=== PATIENT | female | born 1945 | race Caucasian/White ===

== ENCOUNTER 2017-06-10 12:04 | Day surgery (SDC) | payer MEDICARE, OTHER ==
[~2017-06-10] VITALS: Ht 160 cm; Wt 89.0 kg
[~2017-06-10 12:04] MED LIST: AMLO10; Cardizem CD 12120 MG PO; HYDCHL25; LISHYD2012; LISHYD2012 PO; LOPE2C; LOSARTAN POTAS100 MG; METCAR500 PO; VARE1 PO
== END 2017-06-10 13:59 | disposition home or self-care (01) ==
LOC: ORSCSDS 12:04
PROVIDERS: Internal Medicine Gastroenterology
PROC: 0DBH8ZX Excision of Cecum, Via Natural or Artificial Opening Endoscopic, Diagnostic (ICD-10-PCS; principal; 2017-06-10 12:30)
PROC: 0DBL8ZX Excision of Transverse Colon, Via Natural or Artificial Opening Endoscopic, Diagnostic (ICD-10-PCS; principal; 2017-06-10 12:30)
PROC: 0DBK8ZX Excision of Ascending Colon, Via Natural or Artificial Opening Endoscopic, Diagnostic (ICD-10-PCS; principal; 2017-06-10 12:30)
DX: Z12.11 Encounter for screening for malignant neoplasm of colon (principal); D12.2 Benign neoplasm of ascending colon; D12.3 Benign neoplasm of transverse colon; K51.40 Inflammatory polyps of colon without complications; K64.8 Other hemorrhoids; K57.30 Diverticulosis of large intestine without perforation or abscess without bleeding; Z86.010 Personal history of colon polyps; Z80.0 Family history of malignant neoplasm of digestive organs; I10 Essential (primary) hypertension; Z86.73 Personal history of transient ischemic attack (TIA), and cerebral infarction without residual deficits; F17.210 Nicotine dependence, cigarettes, uncomplicated; Z79.899 Other long term (current) drug therapy
CPT/HCPCS: 88305; J7120

== ENCOUNTER → 2018-06-09 | Outpatient (CLI) | payer MEDICARE, OTHER | END | disposition home or self-care (01) | LOC: LAB SHORT 15:46 → LAB EV 15:46 | DX: L72.3 Sebaceous cyst (principal); L02.211 Cutaneous abscess of abdominal wall | CPT/HCPCS: 87070; 87075; 87077; 87186; 87205 ==

== ENCOUNTER → 2020-08-01 | Outpatient (CLI) | payer MEDICARE, OTHER ==
[2020-08-01 19:37] LABS: Appearance, Urine Cloudy (Clear); Bilirubin, Urine Neg (Neg); Blood, Urine Neg (Neg); Color, Urine Yellow (P-Yellow); Glucose Qualitative, Urine Neg (Neg); Ketones, Urine Neg (Neg); Leukocyte Esterase, Urine 3+ (Neg); Nitrite, Urine Neg (Neg); Protein, Urine 1+ (Neg); Specific Gravity, Urine 1.015 (1.003-1.022); Urobilinogen, Urine NORM (Normal)
[2020-08-01 20:01] LABS: Bacteria Many /hpf; Red Blood Cells, Urine 0-2 /hpf (0-2); Squamous Epithelial Cells Many /hpf (Few)
[2020-08-01 20:02] LABS: Calcium Oxalate Crystals Mod /hpf
== END ==
LOC: LAB SHORT 14:15
PROVIDERS: Internal Medicine
DX: N39.0 Urinary tract infection, site not specified (principal)
CPT/HCPCS: 81001; 87086

== ENCOUNTER → 2021-01-29 | Outpatient (CLI) | payer MEDICARE, OTHER ==
[2021-01-30 14:11] LABS: HPV 16 Negative (Negative); HPV 18 Negative (Negative); HPV OTHER HR TYPES Negative (Negative)
== END | disposition home or self-care (01) ==
LOC: LAB 11:02 → LAB SHORT 11:02
PROVIDERS: Obstetrics & Gynecology
DX: Z01.419 Encounter for gynecological examination (general) (routine) without abnormal findings (principal)
CPT/HCPCS: 87624; G0123

== ENCOUNTER → 2021-02-13 | Outpatient (CLI) | payer MEDICARE, OTHER ==
[2021-02-13 14:52] LABS: Appearance, Urine Hazy (Clear); Bilirubin, Urine Neg (Neg); Blood, Urine Neg (Neg); Color, Urine Yellow (P-Yellow); Glucose Qualitative, Urine Neg (Neg); Ketones, Urine Neg (Neg); Leukocyte Esterase, Urine 3+ (Neg); Nitrite, Urine Neg (Neg); Protein, Urine 1+ (Neg); Specific Gravity, Urine 1.015 (1.003-1.022); Urobilinogen, Urine NORM (Normal)
[2021-02-13 15:18] LABS: Bacteria Many /hpf; Red Blood Cells, Urine 0-2 /hpf (0-2); Squamous Epithelial Cells Mod /hpf (Few); Transitional Epithelial Cells Few /hpf (0-Rare); White Blood Cells, Urine 25-50 /hpf (0-5)
== END | disposition home or self-care (01) ==
LOC: LAB 11:00 → LAB SHORT 11:00
PROVIDERS: Internal Medicine
DX: N39.0 Urinary tract infection, site not specified (principal)
CPT/HCPCS: 81001; 87086

== ENCOUNTER → 2021-04-08 | Outpatient (CLI) | payer MEDICARE, OTHER | END | disposition home or self-care (01) | LOC: LAB SHORT 19:30 → LAB 19:30 | DX: N39.0 Urinary tract infection, site not specified (principal) | CPT/HCPCS: 87086 ==

== ENCOUNTER 2021-04-15 08:38 | Day surgery (SDC) | payer MEDICARE, OTHER ==
[~2021-04-15] VITALS: Ht 160 cm; Wt 95.6 kg
[~2021-04-15 08:38] MED LIST changes: +BUPROPION XL150 M1 PO; +Calcium Carbon500 MG PO; +MELATONIN5 M1 PO; +METO25ER PO; +VIT1CAPS12
[2021-04-15 11:12] LABS: BASOPHILS ABSOLUTE AUTO 0.05 K/mm3 (0.00-0.23); BASOPHILS PERCENT AUTO 1 % (0-2); EOSINOPHILS ABSOLUTE AUTO 0.22 K/mm3 (0.00-0.68); EOSINOPHILS PERCENT AUTO 3 % (0-6); Hematocrit 52.3 % (33.0-51.0); Hemoglobin 17.1 g/dL (11.5-16.0); IMMATURE GRAN PERCENT AUTO 1 % (0-1); LYMPHOCYTES ABSOLUTE AUTO 1.58 K/mm3 (0.84-5.20); LYMPHOCYTES PERCENT AUTO 19 % (21-46); MONOCYTES ABSOLUTE AUTO 1.31 K/mm3 (0.16-1.47); MONOCYTES PERCENT AUTO 16 % (4-13); Mean Corpuscular HGB 29.1 pg (26.0-34.0); Mean Corpuscular HGB Conc 32.7 g/dL (31.5-36.5); Mean Corpuscular Volume 89 fL (80-100); NEUTROPHILS ABSOLUTE AUTO 4.94 K/mm3 (1.96-9.15); NEUTROPHILS PERCENT AUTO 60 % (41-73); Platelet Count 131 K/mm3 (150-400); RDW Coefficient Variation 13.8 % (11.7-14.2); RDW Standard Deviation 45.1 fL (35.1-46.3); Red Blood Cell Count 5.88 M/mm3 (3.80-5.20)
[2021-04-15 11:17] LABS: Bun/Creatinine Ratio 21.2 (12.0-20.0); Calcium, Blood 9.6 mg/dL (8.5-10.1); Creatinine, Blood 1.04 mg/dL (0.40-1.00); Potassium, Blood 3.5 mmol/L (3.5-5.5)
--- NOTE | 2021-04-15 12:30 | NUR ---
Discharge instructions reviewed with patient. Patient verbalizes understanding. Copy given to patient to take home.
--- NOTE | 2021-04-15 12:33 | NUR ---
PT MAINTAINGIN SATS AT 94-95 ON ROOM AIR
--- NOTE | 2021-04-15 12:55 | NUR ---
Discharged via wheelchair to private car for ride home.
== END 2021-04-15 12:57 | disposition home or self-care (01) ==
LOC: ORSCMMR 08:38 → ORD 09:30 → ORSCMMR 09:30
PROVIDERS: Obstetrics & Gynecology
PROC: 0UDB8ZX Extraction of Endometrium, Via Natural or Artificial Opening Endoscopic, Diagnostic (ICD-10-PCS; principal; 2021-04-15 10:30)
DX: N95.0 Postmenopausal bleeding (principal); N84.0 Polyp of corpus uteri; I10 Essential (primary) hypertension; K21.9 Gastro-esophageal reflux disease without esophagitis; E66.9 Obesity, unspecified; Z68.37 Body mass index [BMI] 37.0-37.9, adult; Z79.899 Other long term (current) drug therapy
CPT/HCPCS: 80048; 85025; 88305; 93005; 93010; J1100; J1885; J2405; J2704; J3010; J7120

== ENCOUNTER → 2021-09-05 | Outpatient (CLI) | payer MEDICARE, OTHER ==
[2021-09-05 15:30] LABS: Appearance, Urine Hazy (Clear); Bilirubin, Urine Neg (Neg); Blood, Urine 1+ (Neg); Glucose Qualitative, Urine Neg (Neg); Ketones, Urine Neg (Neg); Leukocyte Esterase, Urine 2+ (Neg); Nitrite, Urine Pos (Neg); Protein, Urine 1+ (Neg); Specific Gravity, Urine 1.015 (1.003-1.022); Urobilinogen, Urine NORM (Normal)
[2021-09-05 16:47] LABS: Color, Urine Pale Yellow (P-Yellow)
[2021-09-05 16:48] LABS: Bacteria Many /hpf; Red Blood Cells, Urine 0-2 /hpf (0-2); Squamous Epithelial Cells Rare /hpf (Few); White Blood Cells, Urine 50-100 /hpf (0-5)
== END | disposition home or self-care (01) ==
LOC: LAB 13:44 → LAB SHORT 13:44
PROVIDERS: Internal Medicine
DX: N39.0 Urinary tract infection, site not specified (principal)
CPT/HCPCS: 81001; 87077; 87086; 87186

== ENCOUNTER → 2023-01-26 | Outpatient (CLI) | payer MEDICARE, OTHER ==
[2023-01-26 13:15] LABS: Appearance, Urine Hazy (Clear); Bilirubin, Urine Neg (Neg); Blood, Urine Neg (Neg); Color, Urine Yellow (P-Yellow); Glucose Qualitative, Urine Neg (Neg); Ketones, Urine Neg (Neg); Leukocyte Esterase, Urine 3+ (Neg); Nitrite, Urine Pos (Neg); Protein, Urine 1+ (Neg); Urobilinogen, Urine NORM (Normal)
[2023-01-26 13:38] LABS: Squamous Epithelial Cells Mod /hpf (Few)
[2023-01-26 13:39] LABS: Bacteria Many /hpf; Calcium Oxalate Crystals Mod /hpf
[2023-01-26 13:40] LABS: Amorphous Light (0-Heavy)
== END | disposition home or self-care (01) ==
LOC: LAB SHORT 09:00 → LAB 09:00
PROVIDERS: Internal Medicine
DX: N39.0 Urinary tract infection, site not specified (principal)
CPT/HCPCS: 81001; 87077; 87086; 87186

== ENCOUNTER 2023-02-13 13:12 | Emergency (ER) | payer MEDICARE, OTHER ==
[~2023-02-13] VITALS: Ht 160 cm; Wt 95.2 kg
[2023-02-13 14:47] VITALS: BP 140/78
== END 2023-02-13 14:48 | disposition home or self-care (01) ==
LOC: ER 13:12
DX: Z04.3 Encounter for examination and observation following other accident (principal); I10 Essential (primary) hypertension; F17.210 Nicotine dependence, cigarettes, uncomplicated; Z79.899 Other long term (current) drug therapy; W01.198A Fall on same level from slipping, tripping and stumbling with subsequent striking against other object, initial encounter
CPT/HCPCS: 99283

== ENCOUNTER → 2023-02-21 | Outpatient (CLI) | payer MEDICARE, OTHER ==
[2023-02-22 14:35] LABS: Source, Urine Clean Catch
[2023-02-22 14:39] LABS: Appearance, Urine Hazy (Clear); Bilirubin, Urine Neg (Neg); Blood, Urine Neg (Neg); Color, Urine Yellow (P-Yellow); Glucose Qualitative, Urine Neg (Neg); Ketones, Urine Neg (Neg); Leukocyte Esterase, Urine 3+ (Neg); Nitrite, Urine Neg (Neg); Protein, Urine 1+ (Neg); Specific Gravity, Urine 1.025 (1.003-1.022); Urobilinogen, Urine NORM (Normal)
[2023-02-22 14:46] LABS: Bacteria Many /hpf; Calcium Oxalate Crystals Mod /hpf; Hyaline Casts 0-2 /lpf (0-2); Red Blood Cells, Urine 0-2 /hpf (0-2); Squamous Epithelial Cells Many /hpf (Few)
== END ==
LOC: LAB 20:00 → LAB SHORT 20:00
PROVIDERS: Internal Medicine
DX: N39.0 Urinary tract infection, site not specified (principal)
CPT/HCPCS: 81001; 87086

== ENCOUNTER 2023-02-27 00:10 | Inpatient (IN) | payer MEDICARE, OTHER ==
[~2023-02-27] VITALS: Ht 160 cm; Wt 100.2 kg
[2023-02-27] VITALS (15 sets, daily range): BP systolic 67–120; BP diastolic 28–83
[~2023-02-27 00:10] MED LIST changes: +PRESERVISION L1 EAC2 PO; -VIT1CAPS12
[2023-02-27 00:30] LABS: Hematocrit 46.8 % (33.0-51.0); Hemoglobin 14.2 g/dL (11.5-16.0); Mean Corpuscular HGB 28.6 pg (26.0-34.0); Mean Corpuscular HGB Conc 30.3 g/dL (31.5-36.5); Mean Corpuscular Volume 94 fL (80-100); Platelet Count 103 K/mm3 (150-400); RDW Coefficient Variation 14.2 % (11.7-14.2); RDW Standard Deviation 48.9 fL (35.1-46.3); Red Blood Cell Count 4.96 M/mm3 (3.80-5.20); White Blood Cell Count 7.35 K/mm3 (4.00-11.30)
[2023-02-27 00:54] LABS: Albumin, Blood 3.1 g/dL (3.4-5.0); Albumin/Globulin Ratio 0.6 (0.8-1.8); Bilirubin, Total 0.5 mg/dL (0.1-1.0); Bun/Creatinine Ratio 23.4 (12.0-20.0); Creatinine, Blood 0.99 mg/dL (0.40-1.00); Globulin, Blood 4.9 g/dL (2.2-4.0); Potassium, Blood 3.5 mmol/L (3.5-5.5)
[2023-02-27 00:55] LABS: BAND PERCENT MAN 1 % (0-8); BASOPHILS PERCENT MAN 0 % (0-2); EOSINOPHILS PERCENT MAN 0 % (0-6); LYMPHOCYTES ABSOLUTE MAN 1.02 K/mm3 (0.84-5.20); LYMPHOCYTES PERCENT MAN 14 % (21-46); MONOCYTES ABSOLUTE MAN 0.58 K/mm3 (0.16-1.47); MONOCYTES PERCENT MAN 8 % (4-13); NEUTROPHILS ABSOLUTE MAN 5.73 K/mm3 (1.96-9.15); SEG NEUTROPHILS PERCENT MAN 77 % (41-73); TOTAL CELLS COUNTED 100
[2023-02-27 01:58] LABS: Magnesium, Blood 2.1 mg/dL (1.6-2.4)
[2023-02-27 02:29] LABS: Thyroid Stimulating Hormone 2.53 uIU/mL (0.360-4.800)
[2023-02-27 04:37] LABS: BASOPHILS ABSOLUTE AUTO 0.01 K/mm3 (0.00-0.23); BASOPHILS PERCENT AUTO 0 % (0-2); EOSINOPHILS ABSOLUTE AUTO 0.06 K/mm3 (0.00-0.68); EOSINOPHILS PERCENT AUTO 1 % (0-6); Hemoglobin 13.5 g/dL (11.5-16.0); IMMATURE GRAN ABSOLUTE AUTO 0.07 K/mm3 (0.00-0.10); IMMATURE GRAN PERCENT AUTO 1 % (0-1); LYMPHOCYTES ABSOLUTE AUTO 0.71 K/mm3 (0.84-5.20); LYMPHOCYTES PERCENT AUTO 9 % (21-46); MONOCYTES PERCENT AUTO 7 % (4-13); Mean Corpuscular HGB 29.1 pg (26.0-34.0); Mean Corpuscular HGB Conc 30.7 g/dL (31.5-36.5); Mean Corpuscular Volume 95 fL (80-100); NEUTROPHILS ABSOLUTE AUTO 6.72 K/mm3 (1.96-9.15); NEUTROPHILS PERCENT AUTO 82 % (41-73); Platelet Count 101 K/mm3 (150-400); RDW Coefficient Variation 14.1 % (11.7-14.2); RDW Standard Deviation 48.9 fL (35.1-46.3); Red Blood Cell Count 4.64 M/mm3 (3.80-5.20); White Blood Cell Count 8.17 K/mm3 (4.00-11.30)
[2023-02-27 04:55] LABS: Bun/Creatinine Ratio 23.6 (12.0-20.0); Calcium, Blood 8.7 mg/dL (8.5-10.1); Creatinine, Blood 0.93 mg/dL (0.40-1.00); Potassium, Blood 5.1 mmol/L (3.5-5.5)
[2023-02-27 15:57] LABS: Anti-Xa UFH, PHA Monitoring <0.10 IU/mL; International Normalized Ratio 1.03; Prothrombin Time Results 10.8 Sec (9.7-11.5)
--- NOTE | 2023-02-27 16:43 | NUR ---
KIMBER CALLED DR WOOD TO NOTIFY OF PT MAINTAINING NSR RATE 70'S. IMPROVED BLOOD PRESSURE, STRONGER PLETH, AND RESOLUTION OF DUSKY CHEST. HE STOPPED THE NPO. AGREED TO THE HEPARIN GTT. CONTINUE POC.
--- NOTE | 2023-02-27 18:12 | NUR ---
NOTE PT RESTING QUIETLY EYES CLOSED. RESP EVEN AND UNLABORED. PT HAS MAINTAINED SR WITH FIRST DEGREE. NO PAUSES OR AFIB. HEPARIN GTT STARTED PER ORDER. IVF INFUSING 100 ML/HR. DENIED PAIN, SOB OR DIZZINESS. PT HAS NOT VOIDED SINCE ADMIT FROM ER. DR WOOD AWARE. CONTINUE POC.
[2023-02-28 04:04] VITALS: BP 116/75
--- NOTE | 2023-02-28 05:41 | NUR ---
PT WENT BACK INTO AFIB WITH PAUSES THIS MORNING. SHE HAD SOME MORE RUNS OF PAUSES. PATIENT ASYMTOPMATIC. PATIENT HAS ROGER AND OXYGEN DROPS OVERNIGHT. PT UP WITH 1 TO BS. LIVES AT [facility]
[2023-02-28 07:17] LABS: Hemoglobin 13.9 g/dL (11.5-16.0); Platelet Count 93 K/mm3 (150-400)
[2023-02-28 07:47] VITALS: BP 113/51
[2023-02-28 07:51] LABS: Mean Platelet Volume 14.3 fL (9.1-12.4)
[2023-02-28 11:50] VITALS: BP 105/67
[2023-02-28 16:05] VITALS: BP 104/67
--- NOTE | 2023-02-28 17:45 | NUR ---
SUMMARY- PT A/O X4. GEN WEAKNESS. UP TO CHAIR FOR BREAKFAST AND LUNCH. TOLERATING PO FOOD AND FLUIDS. TELE THIS AM 0810 AFIB RATE 39 BRIEFLY, CONVERTED FOR A SHORT TIME TO SR IN THE 80'S. BACK TO A-FIB 80-100'S, FREQ PAUSES RANGING FROM 3.5-6 SECONDS IN LENGTH APPROX HOURLY. AFIB MOST OF THIS SHIFT EXCEPT BRIEF SR THIS AM. PT DENIES EVER FEELING DIZZI OR SOB DURING EPISODES. LAST DOSE ACCORDING TO PT WAS PM 02/26 APPROX 1999 JUST BEFORE SHE WAS BROUGHT INTO ED. DR SIGALA CONSULTED AND PT HAS CONCENTED FOR PACEMAKER SHOUD PAUSES CONTINUE. PLAN FOR PT TO BE NPO AFTER MN FOR PACEMAKER PLACEMENT LIKELY THURSDAY, BUT WILL PERFORM THURSDAY IF MORE URGENT. PT MAINTAINS STABLE BP SBP 110'S/60'S. WILL REPORT TO JOHNY COLLAZO
[2023-02-28 20:30] VITALS: BP 105/64
[2023-03-01] VITALS (8 sets, daily range): BP systolic 102–133; BP diastolic 62–88
[2023-03-01 02:32] LABS: Hematocrit 44.7 % (33.0-51.0); Hemoglobin 13.4 g/dL (11.5-16.0); Platelet Count 86 K/mm3 (150-400)
[2023-03-01 02:52] LABS: Mean Platelet Volume 13.4 fL (9.1-12.4)
--- NOTE | 2023-03-01 05:51 | NUR ---
SHIFT SUMMARY ADMIT FOR SINUS PAUSES, NON-SYMPTOMATIC. NEW DX AFIB W/ 3-4SEC PAUSES. PT A&OX3, PLEASANT AND LIKES TO VISIT. O2 INCREASED TO 4L DURING SLEEP FOR LOW BIOX. PT NPO @MN, IN THE EVENT OF SURGERY. POSS PLANS FOR PACER PLACEMENT THURSDAY. HEPARIN DRIP CONTINUED AT 13U/KG/HR TO L AC. EPI AND ATROPINE AT BEDSIDE. PT USES BSC W/ 1 ASSIST. UP TO RECLINER THIS A.M. CALL LIGHT W/IN REACH. WILL REPORT TO ONCOMING STAFF.
--- NOTE | 2023-03-01 11:16 | NUR ---
AT ABOUT 1100 THIS AM OUR MOBILE DEVELOPMENT MANAGER CALLED ABOUT THE PT BEING IN SR. WHEN EVALUATING THE PT SHE WAS GOING IN AND OUT OF SR AND AFIB/FLUTTER. HER ONLY COMPLAINT WAS NECK AND SHOULDER PAIN. NO REPORTS OF CHEST PAIN. AN EKG WAS OBTAINED. I SPOKE W/ THE SHIFTMAN AND SHE STATED TO NOTIFY DR. SMYTH ABOUT REPORTED NEW NSR. DR. SMYTH CALL ABOUT 1120 AND STATED THE PLAN WILL CONTINUE WITH A DUAL CHAMBER PACEMAKER ON 03/02. NO ORDERS AT THIS TIME
--- NOTE | 2023-03-01 16:22 | NUR ---
SHIFT SUMMARY PT IS A&OX4, 1P SBA W/ FWW, AND HAS BEEN DROWSY THIS SHIFT. SHE CALLS APPROPRIATELY AND IS ABLE TO MAKE HER NEEDS KNOWN. WHEN SHE IS SLEEPING SHE DOES CALL OUT FOR A FAMILY MEMBER BY THE NAME OF IRIS. ON TELE HER HR AND RHYTHM HAVE BEEN IRREGULAR AND JUMPING AROUND. PT ASYMPTOMATIC. HR RANGING FROM 20'S-100'S AMD SHE HAS BEEN IN AFIB, SR, AND AFLUTTER. DR. SIGALA SAW HER TODAY AND STATED SHE WILL GO IN FOR A DUAL CHAMBER PACEMAKER TOMORROW. HEP GTT OFF AT 0000 AND NPO AT 0000. PT IS ON RA WHEN AWAKE AND 2L NC WHEN ASLEEP. DUE TO HER DROWSINESS, SHE HAS BEEN ON OXYGEN MOST OF THE DAY. NO ACUTE EVENTS. FIRE IGNITION RISK HAS BEEN ASSESSED. NO RISK SEEN AT THIS TIME .
[2023-03-02] VITALS (15 sets, daily range): BP systolic 114–135; BP diastolic 65–104
--- NOTE | 2023-03-02 | NUR ---
HEPARIN GTT PLACED ON STAND BY PER ORDERS FOR PENDING PROCEDURE IN THE AM. PT IS ALSO NPO OF NOW.
--- NOTE | 2023-03-02 05:27 | NUR ---
SHIFT SUMMARY NO ACUTE CHANGES NOTED THROUGH THE NIGHT, PT REMAINS A&O, VSS, SPO2 >94% ON 2L O2 VIA NC, INCENTIVE SPIROMETER ENCOURAGED, EDU PROVIDED, APNEA NOTED WHILE SLEEPING, SBA TO BSC, VOIDING WNL, NPO SINCE 0000, HEP GTT REMOVED @0000 PER ORDERS FOR PENDING PROCEDURE THIS AM, GLUE PLANT OPERATOR REPORTED 1 EPISODE OF BRADYCARDIA, ONE 3 SEC PAUSE & AFIB/FLUTTER, PT ASYMPTOMATIC, PT DENIES CP/PRESSURE, PT IS ABLE TO CALL PRN FOR ASSISTANCE, RESTING QUIETLY AT THIS TIME, CALL LIGHT IN REACH, WCTM & REPORT TO DAY RN
--- NOTE | 2023-03-02 10:39 | NUR ---
UPDATE PT TAKEN DOWN TO SUPERVISOR FILLING AND PACKING FOR PROCEDURE. WILL AWAIT RETURN
[2023-03-02 13:32] LABS: BASOPHILS ABSOLUTE AUTO 0.02 K/mm3 (0.00-0.23); BASOPHILS PERCENT AUTO 0 % (0-2); EOSINOPHILS ABSOLUTE AUTO 0.16 K/mm3 (0.00-0.68); EOSINOPHILS PERCENT AUTO 3 % (0-6); Hematocrit 44.3 % (33.0-51.0); Hemoglobin 13.6 g/dL (11.5-16.0); IMMATURE GRAN ABSOLUTE AUTO 0.04 K/mm3 (0.00-0.10); IMMATURE GRAN PERCENT AUTO 1 % (0-1); LYMPHOCYTES ABSOLUTE AUTO 0.63 K/mm3 (0.84-5.20); LYMPHOCYTES PERCENT AUTO 12 % (21-46); MONOCYTES ABSOLUTE AUTO 0.71 K/mm3 (0.16-1.47); MONOCYTES PERCENT AUTO 13 % (4-13); Mean Corpuscular HGB 29.3 pg (26.0-34.0); Mean Corpuscular HGB Conc 30.7 g/dL (31.5-36.5); Mean Corpuscular Volume 96 fL (80-100); NEUTROPHILS ABSOLUTE AUTO 3.77 K/mm3 (1.96-9.15); NEUTROPHILS PERCENT AUTO 71 % (41-73); Platelet Count 93 K/mm3 (150-400); RDW Coefficient Variation 13.8 % (11.7-14.2); RDW Standard Deviation 48.2 fL (35.1-46.3); Red Blood Cell Count 4.64 M/mm3 (3.80-5.20); White Blood Cell Count 5.33 K/mm3 (4.00-11.30)
--- NOTE | 2023-03-02 13:37 | NUR ---
UPDATE PT RETURNED FROM RADAR MECHANIC. PT AWAKE AND ALERT. VS STABLE. WOUND TO LEFT CHEST WALL WITH DRESSING IN PLACE C/D/I. ICE PACK IN PLACE AND SLING TO LEFT ARM. PT EDUCATED ON ACTIVITY RESTRICTIONS. WILL CONTINUE TO MONITOR CLOSELY
[2023-03-02 14:53] LABS: Albumin, Blood 2.8 g/dL (3.4-5.0); Albumin/Globulin Ratio 0.6 (0.8-1.8); Bilirubin, Total 0.6 mg/dL (0.1-1.0); Bun/Creatinine Ratio 15.2 (12.0-20.0); Calcium, Blood 8.6 mg/dL (8.5-10.1); Creatinine, Blood 0.86 mg/dL (0.40-1.00); Globulin, Blood 4.6 g/dL (2.2-4.0); Potassium, Blood 3.5 mmol/L (3.5-5.5); Total Protein, Blood 7.4 g/dL (6.4-8.2)
--- NOTE | 2023-03-02 17:15 | NUR ---
SHIFT SUMMARY PT REMAINS ALERT AND ORIENTED. BP STABLE. HR HAS BEEN AFIB WITH SOME OCCASIONAL PACED BEATS. PT HAS BEEN ON AND OFF 2L NC SHE NEEDS IT FOR SLEEPING WITH SATS >90%. WOUND TO LEFT CHEST WALL SOFT, NONTENDER AND NO HEMATOMA. DRESSING STILL INTACT AND CLEAN. PT DENIES ANY PAIN. WILL CONTINUE TO MONITOR AND REPORT TO ONCOMING RN
[2023-03-03 03:55] VITALS: BP 110/72
--- NOTE | 2023-03-03 04:54 | NUR ---
SHIFT SUMMARY THIS RN ASSUMED CARE OF PATIENT AT 1900. PT A&O X3-4. FORGETFUL AT TIMES. CALLING APPROPRIATELY. BP STABLE. PT CONVERTING FROM AFIB/FLUTTER TO SR, OCCASIONAL VPACED BEATS AND PVC'S NOTED; HR 70-80'S. ON 2L VIA NC WITH SPO2 >92%. AFEBRILE. PT TRANSFERRED TO BSC WITH 1P ASSIST. PACEMAKER TO LEFT CHEST WALL. DRESSING C/D/I; MILD TENDERNESS WITH PALPATION. SLING IN PLACE. PT VERBALIZES UNDERSTANDING OF ROM RESTRICTIONS BUT NEEDS REMINDERS OCCASIONALLY. PPP. BS+. BED IN LOWEST POSITION. BED ALARM ON. CALL LIGHT WITHIN REACH. THIS RN WILL REPORT TO ONCOMING DAYSHIFT RN.
[2023-03-03 07:53] VITALS: BP 109/98
--- NOTE | 2023-03-03 07:55 | NUR ---
NURSING PCU DAYSHIFT: Assumed care of pt at approx 0700. A/O, very pleasant, cooperative w/care. Mild general weakness, transfers w/SBA. Denies any pain/discomfort at rest. Skin is fragile, scattered bruising, new pacer site to LCW, dressing intact w/no bleed/hematoma noted. Tele in place, aflutter, no c/o CP/pressure, SBP 109 prior to a.m. meds, new pacer placed /6. L/S fairly cta t/o though dim in mid/lower lobes, 2L nc while asleep, O2 sat mid 90's, no noted cough, denies dyspnea, uses I/S while awake. Abd SNT, BT+, voiding w/o difficulty per pt. PIV x1, s/l No s/s of acute distress this a.m. Pt anticipating discharge home today. Denies any current needs or questions regarding plan of care. L arm sling and ice pack in place. Awaiting rounding from PMD. Cont to monitor for changes.
[2023-03-03 09:10] VITALS: BP 118/89
[2023-03-03] MEDS ORDERED: CEPH500 PO (12:04)
--- NOTE | 2023-03-03 12:41 | NUR ---
NURSING PCU DISCHARGE SUMMARY: Pt continued to do well t/o the a.m. Seen by PMD and cardiology, new d/o received. Worked w/P.T., tolerated well, see assessment for full details. Discharge home d/o received. Instructions discussed w/patient and facility staff, questions answered. Telephone update provided to cici. No s/s of acute distress noted at time of discharge, PIV dc'd w/cath intact, escorted from unit via w/c accompanied by PCT.
== END 2023-03-03 12:29 | disposition home health service (06) | DRG 242 ==
LOC: ER 00:10 → PCU 00:11 → ERHOLD 00:11 → PCU 12:54
PROVIDERS: Emergency Medicine; Family Medicine; Internal Medicine; ADMIT Internal Medicine
PROC: B24BZZZ Ultrasonography of Heart with Aorta (ICD-10-PCS; 2023-02-27)
PROC: 0JH606Z Insertion of Pacemaker, Dual Chamber into Chest Subcutaneous Tissue and Fascia, Open Approach (ICD-10-PCS; principal; 2023-03-02)
PROC: 02H63JZ Insertion of Pacemaker Lead into Right Atrium, Percutaneous Approach (ICD-10-PCS; 2023-03-02)
PROC: 02HK3JZ Insertion of Pacemaker Lead into Right Ventricle, Percutaneous Approach (ICD-10-PCS; 2023-03-02)
PROC: 3E0102A Introduction of Anti-Infective Envelope into Subcutaneous Tissue, Open Approach (ICD-10-PCS; 2023-03-02)
DX: I49.5 Sick sinus syndrome (principal); J96.21 Acute and chronic respiratory failure with hypoxia; E87.0 Hyperosmolality and hypernatremia; I48.92 Unspecified atrial flutter; G12.29 Other motor neuron disease; Z66 Do not resuscitate; N18.30 Chronic kidney disease, stage 3 unspecified; I12.9 Hypertensive chronic kidney disease with stage 1 through stage 4 chronic kidney disease, or unspecified chronic kidney disease; R74.8 Abnormal levels of other serum enzymes; I48.0 Paroxysmal atrial fibrillation; E11.22 Type 2 diabetes mellitus with diabetic chronic kidney disease; F03.90 Unspecified dementia, unspecified severity, without behavioral disturbance, psychotic disturbance, mood disturbance, and anxiety; J44.9 Chronic obstructive pulmonary disease, unspecified; D69.6 Thrombocytopenia, unspecified; E66.9 Obesity, unspecified; F17.200 Nicotine dependence, unspecified, uncomplicated; E78.5 Hyperlipidemia, unspecified; E87.8 Other disorders of electrolyte and fluid balance, not elsewhere classified; I95.9 Hypotension, unspecified; Z99.81 Dependence on supplemental oxygen; Z68.35 Body mass index [BMI] 35.0-35.9, adult
CPT/HCPCS: 33208; 36415; 71045; 71046; 76937; 80048; 80053; 83690; 83735; 84443; 84484; 85014; 85018; 85025; 85049; 85520; 85610; 85730; 93005; 93010; 93306; 94760; 96361; 96365-59; 96375; 96375-59; 96376; 97116; 97162; 99152; 99153; 99291-25; A9270; C1781; C1785; C1894; C1898; G0378; J0690; J1644; J2250; J2405; J3010; J3475; J7030; J7040

== ENCOUNTER 2023-03-04 14:07 | Emergency (ER) | payer MEDICARE, OTHER ==
[~2023-03-04] VITALS: Ht 160 cm; Wt 95.7 kg
[~2023-03-04 14:07] MED LIST changes: +CEPH500 PO
[2023-03-04 15:33] LABS: BASOPHILS ABSOLUTE AUTO 0.02 K/mm3 (0.00-0.23); BASOPHILS PERCENT AUTO 0 % (0-2); EOSINOPHILS ABSOLUTE AUTO 0.13 K/mm3 (0.00-0.68); EOSINOPHILS PERCENT AUTO 2 % (0-6); Hematocrit 44.3 % (33.0-51.0); Hemoglobin 13.6 g/dL (11.5-16.0); IMMATURE GRAN ABSOLUTE AUTO 0.06 K/mm3 (0.00-0.10); IMMATURE GRAN PERCENT AUTO 1 % (0-1); LYMPHOCYTES ABSOLUTE AUTO 0.76 K/mm3 (0.84-5.20); LYMPHOCYTES PERCENT AUTO 10 % (21-46); MONOCYTES ABSOLUTE AUTO 1.55 K/mm3 (0.16-1.47); MONOCYTES PERCENT AUTO 21 % (4-13); Mean Corpuscular HGB 28.8 pg (26.0-34.0); Mean Corpuscular HGB Conc 30.7 g/dL (31.5-36.5); Mean Corpuscular Volume 94 fL (80-100); NEUTROPHILS PERCENT AUTO 67 % (41-73); Platelet Count 77 K/mm3 (150-400); RDW Coefficient Variation 14.2 % (11.7-14.2); RDW Standard Deviation 47.9 fL (35.1-46.3); Red Blood Cell Count 4.72 M/mm3 (3.80-5.20); White Blood Cell Count 7.52 K/mm3 (4.00-11.30)
[2023-03-04 15:50] LABS: Albumin/Globulin Ratio 0.6 (0.8-1.8); Bilirubin, Total 0.7 mg/dL (0.1-1.0); Calcium, Blood 9.1 mg/dL (8.5-10.1); Creatinine, Blood 0.88 mg/dL (0.40-1.00); Potassium, Blood 3.5 mmol/L (3.5-5.5)
[2023-03-04 17:03] LABS: Base Excess Venous 5.9 mmol/L; Bicarbonate Venous 28.7 mmol/L (24.0-30.0); PCO2 Venous 48.7 mmHg (38-42); pH Blood Venous 7.41 (7.34-7.37)
[2023-03-04 20:30] VITALS: BP 138/88
== END 2023-03-04 23:27 | disposition home or self-care (01) ==
LOC: ER 14:07
PROVIDERS: Student in an Organized Health Care Education/Training Program
DX: R06.02 Shortness of breath (principal); I48.91 Unspecified atrial fibrillation; D69.6 Thrombocytopenia, unspecified; I10 Essential (primary) hypertension; I25.10 Atherosclerotic heart disease of native coronary artery without angina pectoris; I49.5 Sick sinus syndrome; Z95.0 Presence of cardiac pacemaker; Z79.899 Other long term (current) drug therapy
CPT/HCPCS: 71045; 71260; 80053; 82803; 83735; 83880; 84484; 85025; 85379; 93005; 93010; 94640; 94664; 99285-25; Q9967

== ENCOUNTER 2023-03-08 12:39 | Emergency (ER) | payer MEDICARE, OTHER ==
[~2023-03-08] VITALS: Ht 172.7 cm; Wt 90.7 kg
[2023-03-08] MEDS ORDERED: ROSU10TA PO (13:03)
[2023-03-08] MEDS ORDERED: BORAGE (13:04)
[2023-03-08] MEDS ORDERED: ACET325 PO (13:04)
[2023-03-08] MEDS ORDERED: FUNGOID-D113 G1 (13:04)
[2023-03-08] MEDS ORDERED: BISA10S (13:05)
[2023-03-08] MEDS ORDERED: DULCOLAX400 MG/51 (13:05)
[2023-03-08] MEDS ORDERED: LOPE2C (13:05)
[2023-03-08 13:16] LABS: BASOPHILS ABSOLUTE AUTO 0.02 K/mm3 (0.00-0.23); BASOPHILS PERCENT AUTO 0 % (0-2); EOSINOPHILS ABSOLUTE AUTO 0.33 K/mm3 (0.00-0.68); EOSINOPHILS PERCENT AUTO 5 % (0-6); Hematocrit 42.7 % (33.0-51.0); Hemoglobin 13.1 g/dL (11.5-16.0); IMMATURE GRAN ABSOLUTE AUTO 0.04 K/mm3 (0.00-0.10); IMMATURE GRAN PERCENT AUTO 1 % (0-1); LYMPHOCYTES ABSOLUTE AUTO 0.87 K/mm3 (0.84-5.20); LYMPHOCYTES PERCENT AUTO 14 % (21-46); MONOCYTES ABSOLUTE AUTO 0.91 K/mm3 (0.16-1.47); MONOCYTES PERCENT AUTO 15 % (4-13); Mean Corpuscular HGB 28.9 pg (26.0-34.0); Mean Corpuscular HGB Conc 30.7 g/dL (31.5-36.5); Mean Corpuscular Volume 94 fL (80-100); NEUTROPHILS ABSOLUTE AUTO 4.07 K/mm3 (1.96-9.15); NEUTROPHILS PERCENT AUTO 65 % (41-73); Platelet Count 99 K/mm3 (150-400); RDW Coefficient Variation 14.2 % (11.7-14.2); RDW Standard Deviation 48.7 fL (35.1-46.3); Red Blood Cell Count 4.54 M/mm3 (3.80-5.20); White Blood Cell Count 6.24 K/mm3 (4.00-11.30)
[2023-03-08 13:31] LABS: Albumin, Blood 2.6 g/dL (3.4-5.0); Albumin/Globulin Ratio 0.5 (0.8-1.8); Bilirubin, Total 0.6 mg/dL (0.1-1.0); Bun/Creatinine Ratio 16.8 (12.0-20.0); Calcium, Blood 8.6 mg/dL (8.5-10.1); Creatinine, Blood 0.95 mg/dL (0.40-1.00); Globulin, Blood 4.8 g/dL (2.2-4.0); Potassium, Blood 3.7 mmol/L (3.5-5.5); Total Protein, Blood 7.4 g/dL (6.4-8.2)
[2023-03-08 13:39] LABS: Mean Platelet Volume 14.1 fL (9.1-12.4)
[2023-03-08 15:37] LABS: Influenza A, PCR NEGATIVE (NEGATIVE); Influenza B, PCR NEGATIVE (NEGATIVE); Resp Syncytial Virus, PCR NEGATIVE (NEGATIVE); SARS-Cov-2 (COVID-19) PCR, MMC NEGATIVE (NEGATIVE)
[2023-03-08 15:42] LABS: Source, Urine Clean Catch
[2023-03-08 15:50] LABS: Appearance, Urine Hazy (Clear); Bilirubin, Urine Neg (Neg); Blood, Urine Neg (Neg); Color, Urine Yellow (P-Yellow); Glucose Qualitative, Urine Neg (Neg); Ketones, Urine Neg (Neg); Leukocyte Esterase, Urine Neg (Neg); Nitrite, Urine Neg (Neg); Protein, Urine 2+ (Neg); Specific Gravity, Urine 1.025 (1.003-1.022); Urobilinogen, Urine 1+ (Normal)
[2023-03-08 16:07] LABS: Amorphous Light (0-Heavy); Bacteria Many /hpf; Calcium Oxalate Crystals Rare /hpf; Mucus Mod (0-Heavy); Red Blood Cells, Urine 0-2 /hpf (0-2); Squamous Epithelial Cells Many /hpf (Few); Transitional Epithelial Cells Rare /hpf (0-Rare)
[2023-03-08 17:00] VITALS: BP 159/105
== END 2023-03-08 17:36 | disposition home or self-care (01) ==
LOC: ER 12:39
PROVIDERS: Emergency Medicine
DX: R42 Dizziness and giddiness (principal); R53.83 Other fatigue; I10 Essential (primary) hypertension; I48.91 Unspecified atrial fibrillation; F17.210 Nicotine dependence, cigarettes, uncomplicated; Z95.0 Presence of cardiac pacemaker; Z20.822 Contact with and (suspected) exposure to COVID-19; Z79.899 Other long term (current) drug therapy
CPT/HCPCS: 0241U; 71046; 80053; 81001; 83880; 84484; 85025; 87086; 93005; 93010; 99285-25

== ENCOUNTER 2023-03-16 14:30 | Emergency (ER) | payer MEDICARE, OTHER ==
[~2023-03-16] VITALS: Ht 162.6 cm; Wt 72.6 kg
[~2023-03-16 14:30] MED LIST changes: +ACET325 PO; +BISA10S; +BORAGE; +DULCOLAX400 MG/51; +FUNGOID-D113 G1; +ROSU10TA PO
[2023-03-16 16:48] LABS: BASOPHILS ABSOLUTE AUTO 0.02 K/mm3 (0.00-0.23); BASOPHILS PERCENT AUTO 0 % (0-2); EOSINOPHILS ABSOLUTE AUTO 0.38 K/mm3 (0.00-0.68); EOSINOPHILS PERCENT AUTO 5 % (0-6); Hematocrit 48.6 % (33.0-51.0); Hemoglobin 14.7 g/dL (11.5-16.0); IMMATURE GRAN ABSOLUTE AUTO 0.06 K/mm3 (0.00-0.10); IMMATURE GRAN PERCENT AUTO 1 % (0-1); LYMPHOCYTES ABSOLUTE AUTO 0.74 K/mm3 (0.84-5.20); LYMPHOCYTES PERCENT AUTO 11 % (21-46); MONOCYTES ABSOLUTE AUTO 1.12 K/mm3 (0.16-1.47); MONOCYTES PERCENT AUTO 16 % (4-13); Mean Corpuscular HGB 28.8 pg (26.0-34.0); Mean Corpuscular HGB Conc 30.2 g/dL (31.5-36.5); Mean Corpuscular Volume 95 fL (80-100); NEUTROPHILS ABSOLUTE AUTO 4.69 K/mm3 (1.96-9.15); NEUTROPHILS PERCENT AUTO 67 % (41-73); Platelet Count 127 K/mm3 (150-400); RDW Coefficient Variation 14.2 % (11.7-14.2); RDW Standard Deviation 49.6 fL (35.1-46.3); White Blood Cell Count 7.01 K/mm3 (4.00-11.30)
[2023-03-16] MEDS ORDERED: LOSARTAN-HCTZ1 EAC5 PO (17:02)
[2023-03-16] MEDS ORDERED: ELIQUIS5 M3 PO (17:02)
[2023-03-16 17:27] LABS: Albumin, Blood 3.1 g/dL (3.4-5.0); Albumin/Globulin Ratio 0.6 (0.8-1.8); Bun/Creatinine Ratio 12.2 (12.0-20.0); Calcium, Blood 9.3 mg/dL (8.5-10.1); Creatinine, Blood 1.23 mg/dL (0.40-1.00); Globulin, Blood 5.2 g/dL (2.2-4.0); Potassium, Blood 3.8 mmol/L (3.5-5.5); Total Protein, Blood 8.3 g/dL (6.4-8.2)
[2023-03-16 19:01] LABS: Source, Urine Fem Cath
[2023-03-16 19:04] LABS: Appearance, Urine Hazy (Clear); Bilirubin, Urine Neg (Neg); Blood, Urine Neg (Neg); Color, Urine Yellow (P-Yellow); Glucose Qualitative, Urine Neg (Neg); Ketones, Urine Neg (Neg); Leukocyte Esterase, Urine 1+ (Neg); Nitrite, Urine Neg (Neg); Protein, Urine Neg (Neg); Urobilinogen, Urine NORM (Normal)
[2023-03-16 19:30] LABS: Bacteria Many /hpf; Mucus Light (0-Heavy); Red Blood Cells, Urine 0-2 /hpf (0-2); Squamous Epithelial Cells Many /hpf (Few); Transitional Epithelial Cells Rare /hpf (0-Rare)
[2023-03-16 19:45] VITALS: BP 112/56
== END 2023-03-16 19:50 | disposition home or self-care (01) ==
LOC: ER 14:30
PROVIDERS: Emergency Medicine
DX: U07.1 COVID-19 (principal); N28.9 Disorder of kidney and ureter, unspecified; I10 Essential (primary) hypertension; I48.91 Unspecified atrial fibrillation; F17.210 Nicotine dependence, cigarettes, uncomplicated; Z95.0 Presence of cardiac pacemaker; Z79.01 Long term (current) use of anticoagulants; Z79.899 Other long term (current) drug therapy
CPT/HCPCS: 71045; 80053; 81001; 85025; 87077; 87086; 87186; 93005; 93010; 96360; 96361; 99285-25; J7030

== ENCOUNTER 2023-04-03 17:37 | Emergency (ER) | payer MEDICARE, OTHER ==
[~2023-04-03] VITALS: Ht 160 cm; Wt 133.8 kg
[~2023-04-03 17:37] MED LIST changes: -ALBU90OI INH
[2023-04-03] MEDS ORDERED: ALBU90OI INH (22:23)
[2023-04-03 23:00] VITALS: BP 149/100
== END 2023-04-04 00:47 | disposition home or self-care (01) ==
LOC: ER 17:37
DX: R06.02 Shortness of breath (principal); D69.6 Thrombocytopenia, unspecified; I10 Essential (primary) hypertension; I48.91 Unspecified atrial fibrillation; I49.5 Sick sinus syndrome; F17.210 Nicotine dependence, cigarettes, uncomplicated; Z95.0 Presence of cardiac pacemaker; Z79.899 Other long term (current) drug therapy; Z79.01 Long term (current) use of anticoagulants
CPT/HCPCS: 71260; 80053; 83880; 84484; 85025; 85379; 93005; 93010; 99285-25; Q9967

== ENCOUNTER → 2023-04-03 | Outpatient (CLI) | payer MEDICARE, OTHER ==
[~2023-04-03] MED LIST changes: +ALBU90OI INH; +ELIQUIS5 M3 PO; +LOSARTAN-HCTZ1 EAC5 PO
[2023-04-03 15:33] LABS: BASOPHILS ABSOLUTE AUTO 0.01 K/mm3 (0.00-0.23); BASOPHILS PERCENT AUTO 0 % (0-2); EOSINOPHILS ABSOLUTE AUTO 0.27 K/mm3 (0.00-0.68); EOSINOPHILS PERCENT AUTO 5 % (0-6); Hematocrit 48.3 % (33.0-51.0); Hemoglobin 14.9 g/dL (11.5-16.0); IMMATURE GRAN ABSOLUTE AUTO 0.04 K/mm3 (0.00-0.10); IMMATURE GRAN PERCENT AUTO 1 % (0-1); LYMPHOCYTES ABSOLUTE AUTO 0.82 K/mm3 (0.84-5.20); LYMPHOCYTES PERCENT AUTO 16 % (21-46); MONOCYTES ABSOLUTE AUTO 0.71 K/mm3 (0.16-1.47); MONOCYTES PERCENT AUTO 14 % (4-13); Mean Corpuscular HGB 28.8 pg (26.0-34.0); Mean Corpuscular HGB Conc 30.8 g/dL (31.5-36.5); Mean Corpuscular Volume 93 fL (80-100); NEUTROPHILS ABSOLUTE AUTO 3.16 K/mm3 (1.96-9.15); NEUTROPHILS PERCENT AUTO 63 % (41-73); RDW Coefficient Variation 14.6 % (11.7-14.2); RDW Standard Deviation 50.4 fL (35.1-46.3); Red Blood Cell Count 5.17 M/mm3 (3.80-5.20); White Blood Cell Count 5.01 K/mm3 (4.00-11.30)
[2023-04-03 15:44] LABS: Albumin/Globulin Ratio 0.6 (0.8-1.8); Bilirubin, Total 0.8 mg/dL (0.1-1.0); Bun/Creatinine Ratio 16.7 (12.0-20.0); Calcium, Blood 9.6 mg/dL (8.5-10.1); Creatinine, Blood 1.2 mg/dL (0.40-1.00); Globulin, Blood 4.8 g/dL (2.2-4.0); Potassium, Blood 3.4 mmol/L (3.5-5.5); Total Protein, Blood 7.8 g/dL (6.4-8.2)
[2023-04-03 16:12] LABS: Platelet Count 77 K/mm3 (150-400)
== END ==
LOC: LAB 15:27 → LAB SHORT 15:27
PROVIDERS: Chiropractor
DX: G47.34 Idiopathic sleep related nonobstructive alveolar hypoventilation (principal)
CPT/HCPCS: 80053; 83880; 84484; 85025; 85379

== ENCOUNTER → 2023-04-16 | Outpatient (CLI) | payer MEDICARE, OTHER ==
[~2023-04-16] MED LIST changes: +ALBU90OI INH
[2023-04-16 17:57] LABS: Appearance, Urine Hazy (Clear); Bilirubin, Urine Neg (Neg); Blood, Urine 1+ (Neg); Color, Urine Yellow (P-Yellow); Glucose Qualitative, Urine Neg (Neg); Ketones, Urine Neg (Neg); Leukocyte Esterase, Urine 3+ (Neg); Nitrite, Urine Pos (Neg); Protein, Urine 2+ (Neg); Urobilinogen, Urine NORM (Normal); pH, Urine 6.5 (5.0-8.0)
[2023-04-16 18:07] LABS: Bacteria Many /hpf; Squamous Epithelial Cells Few /hpf (Few); White Blood Cells, Urine 50-100 /hpf (0-5)
[2023-04-16 18:08] LABS: Transitional Epithelial Cells Rare /hpf (0-Rare)
== END ==
LOC: LAB SHORT 16:42 → LAB 16:42
PROVIDERS: Internal Medicine
DX: N39.0 Urinary tract infection, site not specified (principal)
CPT/HCPCS: 81001; 87077; 87086; 87186

== ENCOUNTER → 2023-05-07 | Outpatient (CLI) | payer MEDICARE, OTHER ==
[2023-05-07 10:12] LABS: Source, Urine Clean Catch
[2023-05-07 11:04] LABS: Appearance, Urine Hazy (Clear); Bilirubin, Urine Neg (Neg); Blood, Urine Neg (Neg); Color, Urine Yellow (P-Yellow); Glucose Qualitative, Urine Neg (Neg); Ketones, Urine Neg (Neg); Leukocyte Esterase, Urine 1+ (Neg); Nitrite, Urine Neg (Neg); Protein, Urine Neg (Neg); Urobilinogen, Urine NORM (Normal); pH, Urine 6.5 (5.0-8.0)
[2023-05-07 11:42] LABS: Bacteria Few /hpf; Red Blood Cells, Urine Not Seen /hpf (0-2); Squamous Epithelial Cells Mod /hpf (Few)
[2023-05-07 11:43] LABS: Calcium Oxalate Crystals Few /hpf
== END ==
LOC: LAB 10:09 → LAB SHORT 10:09
PROVIDERS: Internal Medicine
DX: N39.0 Urinary tract infection, site not specified (principal)
CPT/HCPCS: 81001; 87086

== ENCOUNTER → 2023-06-06 | Outpatient (CLI) | payer MEDICARE, OTHER ==
[2023-06-06 14:33] LABS: Appearance, Urine Clear (Clear); Bilirubin, Urine Neg (Neg); Blood, Urine Neg (Neg); Color, Urine Yellow (P-Yellow); Glucose Qualitative, Urine 4+ (Neg); Ketones, Urine Neg (Neg); Leukocyte Esterase, Urine 1+ (Neg); Nitrite, Urine Neg (Neg); Protein, Urine 1+ (Neg); Specific Gravity, Urine 1.025 (1.003-1.022); Urobilinogen, Urine NORM (Normal)
[2023-06-06 14:40] LABS: Bacteria Many /hpf; Calcium Oxalate Crystals Few /hpf; Hyaline Casts 0-2 /lpf (0-2); Squamous Epithelial Cells Mod /hpf (Few); Transitional Epithelial Cells Rare /hpf (0-Rare)
== END | disposition home or self-care (01) ==
LOC: LAB 06-05 19:23
PROVIDERS: Internal Medicine
DX: N39.0 Urinary tract infection, site not specified (principal)
CPT/HCPCS: 81001; 87086

== ENCOUNTER 2023-06-12 18:58 | Emergency (ER) | payer MEDICARE, OTHER ==
[~2023-06-12] VITALS: Ht 160 cm; Wt 133.8 kg
[2023-06-13] VITALS: BP 144/115
== END 2023-06-13 01:30 | disposition home or self-care (01) ==
LOC: ER 18:58
DX: S00.83XA Contusion of other part of head, initial encounter (principal); S80.212A Abrasion, left knee, initial encounter; S00.31XA Abrasion of nose, initial encounter; W18.30XA Fall on same level, unspecified, initial encounter; Z79.899 Other long term (current) drug therapy; I10 Essential (primary) hypertension; I48.91 Unspecified atrial fibrillation; F17.210 Nicotine dependence, cigarettes, uncomplicated
CPT/HCPCS: 70450; 72125; 82947; 93005; 93010; 99284-25

== ENCOUNTER → 2023-06-14 | Outpatient (CLI) | payer MEDICARE, OTHER ==
[2023-06-14 15:33] LABS: Source, Urine Clean Catch
[2023-06-14 15:45] LABS: Appearance, Urine Clear (Clear); Bilirubin, Urine Neg (Neg); Blood, Urine 1+ (Neg); Color, Urine Yellow (P-Yellow); Glucose Qualitative, Urine 3+ (Neg); Ketones, Urine Neg (Neg); Leukocyte Esterase, Urine 1+ (Neg); Nitrite, Urine Neg (Neg); Protein, Urine 2+ (Neg); Urobilinogen, Urine NORM (Normal)
[2023-06-14 15:59] LABS: Bacteria Many /hpf; Hyaline Casts 0-2 /lpf (0-2); Red Blood Cells, Urine 0-2 /hpf (0-2); Squamous Epithelial Cells Mod /hpf (Few)
[2023-06-14 16:00] LABS: Transitional Epithelial Cells Rare /hpf (0-Rare)
== END | disposition home or self-care (01) ==
LOC: LAB SHORT 14:30
PROVIDERS: Internal Medicine
DX: N39.0 Urinary tract infection, site not specified (principal)
CPT/HCPCS: 81001; 87086